=== PATIENT | female | born 1995 | race Caucasian/White ===

== ENCOUNTER 2020-04-21 19:42 | Emergency (ER) | payer SELFPAY ==
[~2020-04-21] VITALS: Ht 172.7 cm; Wt 56.7 kg
[2020-04-21 19:57] VITALS: BP 132/91
== END 2020-04-21 21:04 | disposition home or self-care (01) ==
LOC: ER 19:45
DX: R07.89 Other chest pain (principal); Z86.16 Personal history of COVID-19